=== PATIENT | male | born 1960 | race Caucasian/White ===

== ENCOUNTER 2023-12-22 08:46 | Outpatient (CLI) | payer BC, SELFPAY ==
--- OUTSIDE RECORDS SUMMARY | 2023-12-22 08:48 | XMS_ITS | Clinical Summary ---
Author Organization [facility] Address [place], [place] [address] Care Team Providers Care Tour Driver Name Role Phone Pcp, No Primary Care Provider Unavailabl e Allergies No known active allergies Medications Medication Sig Dispensed Refills Start Date End Date Status cannabidioL (EPIDIOLEX) 100 mg/mL soln oral solution Take 500 mg by mouth Acti ve oxyCODONE-acetamin ophen, 5-325 mg, (PERCOCET) 5-325 mg per tabletIndications: Post-op pain Take 1-2 tablets by mouth every 4 hours if needed for Pain Max acetaminophen dose: 4000mg in 24 hrs. 20 tablet 03/01/2020 Active Active Problems No known active problems Social History Tobacco Use Types Packs/Day Years Used Date Smoking Tobacco: Every Day Cigarettes 0.5 46.5 Started: 06/30/1977 Smokeless Tobacco: Never Alcohol Use Standard Drinks/Week Comments Yes 0 (1 standard drink = 0.6 oz pur e alcohol) 12 drinks/week Sex and Gender Information Value Date Recorded Sex Assigned at Not on file Gender Identity Not on file Sexual Orientation Not on file Obstetrics History Last Filed Vital Signs Vital Sign Reading Time Taken Comments Blood Pressure 130/78 03/01/2020 11:45 AM CDT Pulse 46 03/01/2020 11:45 AM CDT Temperature 36.8 ??C (98.2 ??F) 03/01/2020 1 1:45 AM CDT Respiratory Rate 16 03/01/2020 11:4 5 AM CDT Oxygen Saturation 100% 03/01/2020 11: 45 AM CDT Inhaled Oxygen Concentration - - Weight 92.4 kg (203 lb 12.8 oz) 03/01/2020 6:32 AM CDT Height 180.3 cm (5' 11) 03/01/2020 6:32 AM CDT Body Mass Index 28.42 03/01/2020 6:32 AM CDT Plan of Treatment Health Maintenance Due Date Last Done Comments Tdap 1973 Depression screening for age 12+ 1974 HIV for age 15-65 1977 Hepatitis C screening for ag e 18-79 1980 Tetanus booster 1982 Colonoscopy through age 75 2007 Lipids for age 45-75 2007 Zoster (shingles) series for age 50+ (1 of 2) 2012 BMI (ht and wt on same day) for age 18+ 06/08/2019 06/08/2018 COVID-19 vaccine series (2022-24 season) 2023 Influenza for age 50-64 02/29/2024 Pneumococcal series for age 6-64 Aged Out No longer eligible based on patient's age to complete this topic Advance Directives * Full Code (Latest Code Status on File) Date Activated Date Inactivated Comments 03/01/2020 6:02 AM 03/01/2020 3:30 PM Question Answer Comments Code Status Discussion: Per Advance Care Plan Care Teams Tour Driver Relationship Specialty Start Date End Date Pcp, No . PCP - General 06/08/18
--- OUTSIDE RECORDS SUMMARY | 2023-12-22 08:48 | XMS_ITS | Clinical Summary ---
Author Organization [facility] Address [address] [place] [id number] Care Team Providers Care Astrobiologist Name Role Phone No Ref-Primary, Physician Primary Care Provider Allergies No known active allergies Medications Medication Sig Dispensed Refills Start Date End Date Status CANNABIDIOL PO CBD oil Active Active Problems Problem Noted Date Diagnosed Date Cellulitis 07/09/2018 Social History Tobacco Use Types Packs/Day Years Used Date Smoking Tobacco: Never Assessed Sex and Gender Information Value Date Recorded Sex Assigned at Not on file Gender Identity Not on file Sexual Orientation Not on file Last Filed Vital Signs Vital Sign Reading Time Taken Comments Blood Pressure 116/89 02/01/2019 3:05 PM CDT Pulse 56 02/01/2019 3:10 PM CDT Temperature 36.9 ??C (98.5 ??F) 02/01/2019 11:32 AM C DT Respiratory Rate 16 02/01/2019 11:32 AM CDT Oxygen Saturation 98% 02/01/2019 11:32 AM CDT Inhaled Oxygen Concentration - - Weight - - Height - - Body Mass Index - - Plan of Treatment Not on file Advance Directives For more information, please contact: [phone] * Full Code (Latest Code Status on File) Date Activated Date Inactivated Comments 07/10/2018 12:51 PM 02/01/2019 11:08 AM Question Answer Comments Code status determined by: Discussion with patie nt/legal decision maker * Full Code Date Activated Date Inactivated Comments 07/09/2018 4:17 PM 07/10/2018 12:51 PM Question Answer Comments Code status determined by: Discussion with patie nt/legal decision maker Care Teams Astrobiologist Relationship Specialty Start Date End Date No Ref-Primary, Physician PCP - General 04/24/17
--- OUTSIDE RECORDS SUMMARY | 2023-12-22 08:48 | XMS_ITS | Referral Summary ---
Author Organization [facility] Address [address] [place] [id number] Care Team Providers Care Dental Biller Name Role Phone No Ref-Primary, Physician Primary [...] Advance Directives For more information, please contact: [phone] * Full Code (Latest Code Status on File) Date Activated Date Inactivated Comments 07/10/2018 12:51 PM 02/01/2019 11:08 AM Question Answer Comments Code status determined by: Discussion with patie nt/legal decision maker * Full Code Date Activated Date Inactivated Comments 07/09/2018 4:17 PM 07/10/2018 12:51 PM Question Answer Comments Code status determined by: Discussion with patie nt/legal decision maker Care Teams Dental Biller Relationship Specialty Start Date End Date No Ref-Primary, Physician PCP - General 04/24/17
== END 2023-12-22 08:47 | disposition home or self-care (01) ==
PROVIDERS: PCP Internal Medicine; Visit Provider Internal Medicine
DX: E78.2 Mixed hyperlipidemia (principal); K22.70 Barrett's esophagus without dysplasia; I10 Essential (primary) hypertension; Z12.5 Encounter for screening for malignant neoplasm of prostate; N40.0 Benign prostatic hyperplasia without lower urinary tract symptoms
CPT/HCPCS: 80053; 80061; G0103

== ENCOUNTER 2024-01-15 10:35 | Outpatient (CLI) | payer BC, SELFPAY ==
--- OUTSIDE RECORDS SUMMARY | 2024-01-15 10:37 | XMS_ITS | Clinical Summary ---
Author Organization [facility] Address [address] [place] [id number] Care Team Providers Care Metal Fabricator Apprentice Name Role Phone No Ref-Primary, Physician Primary [...] Advance Directives For more information, please contact: [phone] * Full Code (Latest Code Status on File) Date Activated Date Inactivated Comments 07/10/2018 12:51 PM 02/01/2019 11:08 AM Question Answer Comments Code status determined by: Discussion with patie nt/legal decision maker * Full Code Date Activated Date Inactivated Comments 07/09/2018 4:17 PM 07/10/2018 12:51 PM Question Answer Comments Code status determined by: Discussion with patie nt/legal decision maker Care Teams Metal Fabricator Apprentice Relationship Specialty Start Date End Date No Ref-Primary, Physician PCP - General 04/24/17
--- OUTSIDE RECORDS SUMMARY | 2024-01-15 10:37 | XMS_ITS | Referral Summary ---
Author Organization [facility] Address [address] [place] [id number] Care Team Providers Care Highway Landscape Architect Name Role Phone No Ref-Primary, Physician Primary [...] Advance Directives For more information, please contact: [phone] * Full Code (Latest Code Status on File) Date Activated Date Inactivated Comments 07/10/2018 12:51 PM 02/01/2019 11:08 AM Question Answer Comments Code status determined by: Discussion with patie nt/legal decision maker * Full Code Date Activated Date Inactivated Comments 07/09/2018 4:17 PM 07/10/2018 12:51 PM Question Answer Comments Code status determined by: Discussion with patie nt/legal decision maker Care Teams Highway Landscape Architect Relationship Specialty Start Date End Date No Ref-Primary, Physician PCP - General 04/24/17
--- OUTSIDE RECORDS SUMMARY | 2024-01-15 10:37 | XMS_ITS | Clinical Summary ---
Author Organization [facility] Address [place], [place] [address] Care Team Providers Care Orthopaedic Physician Assistant Name Role Phone Pcp, No Primary Care [...] Discussion: Per Advance Care Plan Care Teams Orthopaedic Physician Assistant Relationship Specialty Start Date End Date Pcp, No . PCP - General 06/08/18
--- NOTE | 2024-01-15 12:06 | W.ANESCHARGE ---
Anesthesia Charges Start Date/Time Anesthesia Start Date: 01/15/24 Anesthesia Start Time: 11:45 Stop Date/Time Anesthesia Stop Date: 01/15/24 Anesthesia Stop Time: 13:06
--- NOTE | 2024-01-15 13:13 | W.ANESCHARGE ---
Anesthesia Charges Start Date/Time Anesthesia Start Date: 01/15/24 Anesthesia Start Time: 11:45 Stop Date/Time Anesthesia Stop Date: 01/15/24 Anesthesia Stop Time: 13:06
== END 2024-01-15 10:36 | disposition home or self-care (01) ==
LOC: OP CLINIC 10:36
PROVIDERS: PCP Internal Medicine; Visit Provider Surgery
DX: K63.5 Polyp of colon (principal); K62.1 Rectal polyp; Z86.010 Personal history of colon polyps; Z13.810 Encounter for screening for upper gastrointestinal disorder; K22.89 Other specified disease of esophagus; K31.89 Other diseases of stomach and duodenum; K29.80 Duodenitis without bleeding
CPT/HCPCS: 00813; 43239; 45385; 88305; J2704; J3490

== ENCOUNTER 2025-01-07 08:00 | Outpatient (CLI) | payer BC, SELFPAY | END 2025-01-07 08:01 | disposition home or self-care (01) | LOC: NFLDREF 01-10 15:58 | PROVIDERS: PCP Internal Medicine; Referring Provider Internal Medicine; Visit Provider Physician Assistant Medical | DX: E78.5 Hyperlipidemia, unspecified (principal); I10 Essential (primary) hypertension; Z12.5 Encounter for screening for malignant neoplasm of prostate | CPT/HCPCS: 80053; 80061; 84443; G0103 ==